=== PATIENT | female | born 1970 | race Caucasian/White ===

== ENCOUNTER 2018-12-07 07:09 | Emergency (ER) | payer SELFPAY | END 2018-12-07 07:58 | disposition home or self-care (01) | LOC: FTE 07:09 | DX: S90.862A Insect bite (nonvenomous), left foot, initial encounter (principal); W57.XXXA Bitten or stung by nonvenomous insect and other nonvenomous arthropods, initial encounter; Y92.830 Public park as the place of occurrence of the external cause | CPT/HCPCS: 99283 ==